=== PATIENT | male | born 2000 | race Caucasian/White ===

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

== ENCOUNTER 2022-12-03 00:23 | Emergency (ER) | payer OTHER ==
[~2022-12-03] VITALS: Ht 167.6 cm; Wt 99.8 kg
[2022-12-03 01:19] VITALS: BP 141/85
== END 2022-12-03 07:34 | disposition home or self-care (01) ==
LOC: ER 00:23
DX: S61.217A Laceration without foreign body of left little finger without damage to nail, initial encounter (principal); S76.211A Strain of adductor muscle, fascia and tendon of right thigh, initial encounter; W17.89XA Other fall from one level to another, initial encounter; Z23 Encounter for immunization
CPT/HCPCS: 12001; 73140; 76870; 90471; 90715; 99283-25

== ENCOUNTER 2023-03-21 19:58 | Emergency (ER) | payer OTHER ==
[~2023-03-21] VITALS: Ht 167.6 cm; Wt 104.3 kg
[2023-03-21 20:15] VITALS: BP 168/94
== END 2023-03-21 22:30 | disposition home or self-care (01) ==
LOC: ER 19:58
DX: R04.0 Epistaxis (principal); R51.9 Headache, unspecified
CPT/HCPCS: 99283

== ENCOUNTER 2023-03-22 20:04 | Emergency (ER) | payer OTHER ==
[~2023-03-22] VITALS: Ht 167.6 cm; Wt 104.3 kg
[2023-03-22 20:23] VITALS: BP 145/88
[2023-03-22 21:24] LABS: Influenza A, PCR NEGATIVE (NEGATIVE); Influenza B, PCR NEGATIVE (NEGATIVE); Resp Syncytial Virus, PCR NEGATIVE (NEGATIVE); SARS-Cov-2 (COVID-19) PCR, MMC NEGATIVE (NEGATIVE)
== END 2023-03-22 23:10 | disposition home or self-care (01) ==
LOC: ER 20:04
PROVIDERS: Physician Assistant
DX: J06.9 Acute upper respiratory infection, unspecified (principal)
CPT/HCPCS: 0241U; 99283

== ENCOUNTER 2023-08-23 20:15 | Emergency (ER) | payer OTHER ==
[~2023-08-23] VITALS: Ht 167.6 cm; Wt 102.1 kg
[2023-08-23 20:36] VITALS: BP 136/87
== END 2023-08-23 23:33 | disposition home or self-care (01) ==
LOC: ER 20:15
DX: M79.643 Pain in unspecified hand (principal); W22.09XA Striking against other stationary object, initial encounter
CPT/HCPCS: 73130; 99283-25

== ENCOUNTER 2024-04-21 05:32 | Day surgery (SDC) | payer OTHER ==
[~2024-04-21] VITALS: Ht 167.6 cm; Wt 106.0 kg
[2024-04-21] MEDS ORDERED: NS 500 ML IV ONE ×3 (06:06→13:54)
[2024-04-21] MEDS ORDERED: CeFAZolin Sodium 2,000 MG VIAL ONE (12:17)
[2024-04-21] MEDS ORDERED: Lidocaine HCl 2% 10 ML SDA ONE (12:46)
[2024-04-21] MEDS ORDERED: FentaNYL Citrate 50 MCG/ML 2 ML Injection ONE ×2 (12:50→14:31)
[2024-04-21] MEDS ORDERED: propofoL 50 ML IV ONE (13:11)
[2024-04-21] MEDS ORDERED: Ondansetron HCl 2 MG / ML 2ML Vial ONE (13:19)
[2024-04-21] MEDS ORDERED: Ketorolac Tromethamine 30mg Vial ONE (13:19)
[2024-04-21] MEDS ORDERED: Dexamethasone Sod Phos 10 MG/ML 1ML VIAL ONE (13:19)
--- NOTE | 2024-04-21 14:14 | NUR ---
04/21/24 1414 Radha Ramos OA REMOVED, PT ON RA. PT DENIES PAIN/NAUSEA, VSS. NO VISIBLE SIGNS OF DISTRESS NOTED.
--- NOTE | 2024-04-21 14:31 | NUR ---
04/21/24 1431 Radha Ramos UPON ARRIVAL TO SDU, PT STATES HE HAS TO URINATE. PT REFUSES TO USE URINAL, STATING "I'D RATHER WALK TO THE BATHROOM." PT STILL DROWSY, SO WHEELCHAIR UTILIZED. PT STATES HE PREFERS TO HAVE A MALE ACCOMPANY HIM TO THE BATHROOM THIS RN FEELS PT SHOULD HAVE SUPERVISION TO MAKE SURE PT IS NOT UNSTEADY IN BATHROOM. PT REQUESTS TO HAVE PANTS AND SHIRT PUT ON. PLACED PANTS ON PT, INFORMED PT THAT SHIRT WILL HAVE TO WAIT UNTIL PT'S IV COMES OUT. PT WHEELED TO BATHROOM & VOIDED.
[2024-04-21] MEDS ORDERED: HYDROcodone 5-APAP 325 TAB ONE (14:38)
[2024-04-21 14:47] VITALS: BP 137/79
== END 2024-04-21 15:00 | disposition home or self-care (01) ==
LOC: ORSCSDS 05:32
PROVIDERS: Orthopaedic Surgery
PROC: 01N40ZZ Release Ulnar Nerve, Open Approach (ICD-10-PCS; principal; 2024-04-21 13:30)
DX: G56.22 Lesion of ulnar nerve, left upper limb (principal); E66.9 Obesity, unspecified; Z68.38 Body mass index [BMI] 38.0-38.9, adult; F17.290 Nicotine dependence, other tobacco product, uncomplicated
CPT/HCPCS: A9270; J0690; J1100; J1885; J2003; J2405; J2704; J3010; J7040